=== PATIENT | male | born 1950 | race Caucasian/White ===

== ENCOUNTER 2016-10-23 10:54 | Outpatient (CLI) | payer MEDICARE, BC ==
[2016-10-23 11:10] LABS: #Basophils 0.1 thou/uL (0.0-0.2); #Eosinphils 0.3 thou/uL (0.0-0.7); #Lymphocytes 1.4 thou/uL (1.20-3.40); #Monocytes 0.7 thou/uL (0.11-0.59); #Neutrophils 3.9 thou/uL (1.40-6.50); %Basophils 2.2 % (0.0-1.0); %Eosinophils 4.5 % (0.0-10.0); %Lymphocytes 21.6 % (21.0-51.0); %Monocytes 11.6 % (0.0-10.0); Hemoglobin 13.8 g/dL (14.0-18.0); Mean Corpuscular HGB CONC 35.2 g/dL (32.0-36.0); Mean Corpuscular Hemoglobin 31.7 pg (27.0-31.0); Mean Platelet Volume 6.4 fL (7.4-10.4); Platelet Count 247 thou/uL (130-400); RBC Distribution Width 12.3 % (11.5-14.5); Red Blood Cell (RBC) Count 4.36 mill/uL (4.70-6.10); White Blood Cell (WBC) Count 6.4 thou/uL (4.8-10.8)
[2016-10-23 11:29] LABS: ALT (SGPT) 27 U/L (8-55); AST (SGOT) 24 U/L (5-34); Albumin 3.9 g/dL (3.4-4.8); Alkaline Phosphatase 49 U/L (40-150); Anion Gap 15 mmol/L (10-20); BUN (Urea Nitrogen) 14 mg/dL (8.4-25.7); Bilirubin, Total 0.7 mg/dL (0.2-1.2); Calc. Creatinine Clearance 0 mL/min (70-130); Carbon Dioxide 24 mmol/L (23-31); Chloride 106 mmol/L (98-107); Cholesterol 184 mg/dl (< 200 Desired); Estimated GFR-MDRD 84; Globulin 2.8 g/dL (2.4-3.5); Glucose 101 mg/dL (80-115); HDL Cholesterol 37 mg/dL (>60 Neg Risk); LDL Cholesterol, Calculated 128 mg/dL; Potassium 4.9 mmol/L (3.5-5.1); Protein, Total 6.7 g/dL (5.8-8.1); Sodium 140 mmol/L (136-145); Triglycerides 95 mg/dL (Less than 150)
== END 2016-10-23 10:55 | disposition home or self-care (01) ==
LOC: HPCALD 10:54
PROVIDERS: ATTEND Family Medicine
DX: Z12.5 Encounter for screening for malignant neoplasm of prostate (principal); Z00.00 Encounter for general adult medical examination without abnormal findings; E78.5 Hyperlipidemia, unspecified
CPT/HCPCS: 36415; 80053; 80061; 85025; G0103

== ENCOUNTER 2016-11-04 15:06 | Outpatient (CLI) | payer MEDICARE, BC | END 2016-11-04 15:07 | disposition home or self-care (01) | LOC: HPCALD 15:06 | PROVIDERS: ATTEND Family Medicine | DX: N39.0 Urinary tract infection, site not specified (principal); R31.9 Hematuria, unspecified | CPT/HCPCS: 87086; 88112 ==

== ENCOUNTER 2018-09-16 11:55 | Outpatient (CLI) | payer MEDICARE, BC ==
--- NOTE | 2018-09-16 12:14 | RAD ---
RADIOGRAPH CHEST 2 VIEWS: DATE: 09/16/2018 HISTORY: 67-year-old male with asbestos exposure. FINDINGS: There is no airspace density, pulmonary edema, pleural effusion, pneumothorax, or cardiomegaly. No ca lcified pleural plaque visualized. IMPRESSION: No active disease.
== END 2018-09-16 11:56 | disposition home or self-care (01) ==
LOC: BURRAD 11:55
PROVIDERS: ATTEND Family Medicine
DX: Z77.090 Contact with and (suspected) exposure to asbestos (principal)
CPT/HCPCS: 71046

== ENCOUNTER 2018-12-20 10:35 | Outpatient (CLI) | payer MEDICARE, BC ==
--- NOTE | 2018-12-20 21:25 | RAD ---
LUMBAR SPINE FIVE VIEWS: Date: 12-20-18 Comparison: 04-20-12 FINDINGS: A posterior lumbar fusion with pedicle screws at L4 through S1 is noted as before. Additionally, the screws at the S1 level are angulated downward and may even be broken at their origins, but it should be emphasized the appearance is no different than 2013. There is only marginal anterior displacement of L5 on S1. The location of the synthetic disc spacers seems comparable to before. With flexion and extension there do not appear to be any significant movement of the lumbar spine. Bony spurring near the thoracolumbar junction is present, more so than before but overall the differences over time are minimal. The SI joints appear normal. IMPRESSION: Little changed since 2012. No evidence of abnormal motion with flexion and extension. POS: HOME
== END 2018-12-20 10:36 | disposition home or self-care (01) ==
LOC: BURRAD 10:35
PROVIDERS: ATTEND Neurological Surgery
DX: M54.5 Low back pain (principal)
CPT/HCPCS: 72120

== ENCOUNTER 2019-02-25 15:30 | Outpatient (CLI) | payer MEDICARE, BC ==
--- NOTE | 2019-02-25 17:44 | RAD ---
CHEST TWO VIEWS: 02/25/19 Comparison is made with the 10/01/11 study. The heart size is unchanged. There is no vascular congestion or edema. No effusions are present. The lungs are clear. IMPRESSION: No acute finding. POS: HOME
== END 2019-02-25 15:31 | disposition home or self-care (01) ==
LOC: BURRAD 15:30
PROVIDERS: ATTEND Nurse Practitioner Family
DX: R06.02 Shortness of breath (principal)
CPT/HCPCS: 71046

== ENCOUNTER 2020-04-12 15:17 | Emergency (ER) | payer MEDICARE, BC ==
--- NOTE | 2020-04-12 17:47 | RAD ---
PORTABLE CHEST: 04/12/20 Comparison is made with the 02/25/19 study. The heart is normal in size. No effusions are seen. There is perhaps a little minor prominence of the lung markings in a diffuse fashion, but nothing that appears to be vascular congestion or edema. The re is some question whether there might be a density behind the heart on the left near the diaphragm. The finding cannot be resolved at this time. It could simply be a small hiatal hernia but even an in filtrate. Depending upon the patient's symptoms, there may need to be follow-up imaging. IMPRESSION: 1. Very minor prominence of lung markings. 2. Questionable area of density seen through the left side of the heart. See comments above and follow-up if symptoms dictate. Code T POS: HOME
== END 2020-04-12 16:33 | disposition home or self-care (01) ==
LOC: BURERS 15:17
DX: U07.1 COVID-19 (principal); I10 Essential (primary) hypertension; J45.909 Unspecified asthma, uncomplicated; F17.220 Nicotine dependence, chewing tobacco, uncomplicated
CPT/HCPCS: 71045; 93005

== ENCOUNTER 2020-04-18 17:03 | Emergency (ER) | payer MEDICARE ==
[2020-04-18 18:08] LABS: #Basophils 0.1 thou/uL (0.0-0.2); #Eosinphils 0.1 thou/uL (0.0-0.7); #Monocytes 1.1 thou/uL (0.11-0.59); #Neutrophils 5.1 thou/uL (1.40-6.50); %Lymphocytes 13.7 % (21.0-51.0); %Monocytes 14.4 % (0.0-10.0); %Neutrophils 69.9 % (42.0-75.0); Hemoglobin 14.8 g/dL (14.0-18.0); Mean Corpuscular HGB CONC 35.1 g/dL (32.0-36.0); Mean Corpuscular Hemoglobin 30.8 pg (27.0-31.0); Mean Platelet Volume 8.1 fL (7.4-10.4); Platelet Count 247 thou/uL (130-400); RBC Distribution Width 11.5 % (11.5-14.5); Red Blood Cell (RBC) Count 4.79 mill/uL (4.70-6.10); White Blood Cell (WBC) Count 7.3 thou/uL (4.8-10.8)
[2020-04-18 18:13] LABS: ALT (SGPT) 28 U/L (8-55); AST (SGOT) 21 U/L (5-34); Albumin 3.8 g/dL (3.4-4.8); Alkaline Phosphatase 57 U/L (40-110); Anion Gap 14 mmol/L (10-20); BUN (Urea Nitrogen) 17 mg/dL (8.4-25.7); Bilirubin, Total 0.7 mg/dL (0.2-1.2); Calc. Creatinine Clearance 0 mL/min (70-130); Calcium 8.8 mg/dL (7.8-10.44); Carbon Dioxide 24 mmol/L (23-31); Chloride 99 mmol/L (98-107); Globulin 2.9 g/dL (2.4-3.5); Glucose 150 mg/dL (80-115); Potassium 3.8 mmol/L (3.5-5.1); Protein, Total 6.7 g/dL (5.8-8.1); Sodium 133 mmol/L (136-145)
== END 2020-04-18 18:40 | disposition home or self-care (01) ==
LOC: BURERS 17:03
DX: U07.1 COVID-19 (principal); I11.0 Hypertensive heart disease with heart failure; I50.9 Heart failure, unspecified; F17.220 Nicotine dependence, chewing tobacco, uncomplicated
CPT/HCPCS: 71045; 80053; 83880; 84484; 85025; 94760

== ENCOUNTER 2020-06-07 10:16 | Outpatient (CLI) | payer MEDICARE | END 2020-06-07 10:17 | disposition home or self-care (01) | LOC: BURRAD 10:16 | PROVIDERS: ATTEND Registered Nurse Community Health | DX: R05 Cough (principal); R09.3 Abnormal sputum; M25.511 Pain in right shoulder | CPT/HCPCS: 71046 ==

== ENCOUNTER 2021-09-25 11:57 | Emergency (ER) | payer MEDICARE | END 2021-09-25 13:15 | disposition home or self-care (01) | LOC: BURERS 11:57 | DX: U07.1 COVID-19 (principal); I10 Essential (primary) hypertension; E78.5 Hyperlipidemia, unspecified; K21.9 Gastro-esophageal reflux disease without esophagitis; F17.220 Nicotine dependence, chewing tobacco, uncomplicated; Z79.899 Other long term (current) drug therapy; Z79.82 Long term (current) use of aspirin | CPT/HCPCS: 99283 ==

== ENCOUNTER 2022-11-05 10:18 | Outpatient (CLI) | payer MEDICARE | END 2022-11-05 10:19 | disposition home or self-care (01) | LOC: BURCT 10:18 | PROVIDERS: ATTEND Family Medicine | DX: R10.9 Unspecified abdominal pain (principal); K57.30 Diverticulosis of large intestine without perforation or abscess without bleeding | CPT/HCPCS: 74176 ==

== ENCOUNTER 2024-01-11 14:41 | Outpatient (CLI) | payer MEDICARE | END 2024-01-11 14:42 | disposition home or self-care (01) | LOC: BURRAD 14:41 | PROVIDERS: ATTEND Family Medicine | DX: R07.81 Pleurodynia (principal) ==

== ENCOUNTER 2024-01-25 15:21 | Outpatient (CLI) | payer MEDICARE | END 2024-01-25 15:22 | disposition home or self-care (01) | LOC: BURCT 15:21 | PROVIDERS: ATTEND Family Medicine | DX: G44.52 New daily persistent headache (NDPH) (principal); R20.9 Unspecified disturbances of skin sensation | CPT/HCPCS: 70450 ==

== ENCOUNTER 2025-03-22 11:47 | Emergency (ER) | payer MEDICARE, OTHER ==
[2025-03-22] MEDS ORDERED: Acetaminophen 500 MG TAB ONE (12:15)
== END 2025-03-22 13:34 | disposition home or self-care (01) ==
LOC: BURERS 11:47
DX: S06.0X1A Concussion with loss of consciousness of 30 minutes or less, initial encounter (principal); S16.1XXA Strain of muscle, fascia and tendon at neck level, initial encounter; S30.0XXA Contusion of lower back and pelvis, initial encounter; I10 Essential (primary) hypertension; K21.9 Gastro-esophageal reflux disease without esophagitis; F17.220 Nicotine dependence, chewing tobacco, uncomplicated; Z79.899 Other long term (current) drug therapy; Z79.82 Long term (current) use of aspirin; W19.XXXA Unspecified fall, initial encounter; Y92.009 Unspecified place in unspecified non-institutional (private) residence as the place of occurrence of the external cause
CPT/HCPCS: 70450; 72125; 72131